=== PATIENT | female | born 1970 | race Caucasian/White ===

== ENCOUNTER 2019-12-19 19:56 | Emergency (ER) | payer OTHER ==
[~2019-12-19] VITALS: Ht 167.6 cm; Wt 53.1 kg
[2019-12-19 20:11] VITALS: Ht 167.6 cm; Wt 53.1 kg
[2019-12-19] MEDS ORDERED: LITHOBID 300 M300 MG PO (20:14)
[2019-12-19 20:24] LABS: BASOPHILS 0.2 % (0-2); EOSINOPHILS 0.2 % (0-7); HEMATOCRIT 43.4 % (36.0-48.0); HEMOGLOBIN 14.4 g/dL (12-16); IMMATURE GRANULOCYTES 0.3 % (0-5); LYMPHOCYTES 7.4 % (15-50); MCH 29.8 pg (26.0-34.0); MCHC 33.2 g/dL (31.0-37.0); MCV 89.7 fL (80.0-100.0); MONOCYTES 6.2 % (2-11); NEUTROPHILS 85.7 % (40-80); PLATELET COUNT 274 10x3/uL (130-400); RBC 4.84 10x6/uL (4.00-5.40); RDW 13.6 % (11.5-14.5)
[2019-12-19 20:35] LABS: ANION GAP 17.2 mmol/L (8-16); CALCIUM 8.7 mg/dL (8.5-10.1); CARBON DIOXIDE 23.6 mmol/L (21.0-32.0); CREATININE - SERUM 0.9 mg/dL (0.6-1.3); POTASSIUM - SERUM 3.8 mmol/L (3.5-5.1)
[2019-12-19 20:38] LABS: LITHIUM 0.25 mmol/L (0.60-1.20); SALICYLATES 4.3 mg/dL (2.8-20.0)
[2019-12-19 20:42] LABS: ALBUMIN 3.4 g/dL (3.4-5.0); BILIRUBIN - TOTAL 1.31 mg/dL (0.2-1.3); MAGNESIUM - SERUM 1.9 mg/dL (1.8-2.4); PROTEIN - SERUM 7.4 g/dL (6.4-8.2)
[2019-12-19] MEDS ORDERED: AUGMENTIN 875-11 TAB PO (20:52)
[2019-12-19 22:25] LABS: APPEARANCE HAZY (CLEAR); BACTERIA MANY /hpf (NEGATIVE); BILIRUBIN NEGATIVE (NEGATIVE); COLOR YELLOW (YELLOW); GLUCOSE NEGATIVE (NEGATIVE); KETONE MODERATE mg/dL (NEGATIVE); MUCUS <1+ /lpf (NONE SEEN); NITRITE NEGATIVE (NEGATIVE); PROTEIN NEGATIVE (NEGATIVE); RED CELLS - URINE OCC /hpf (0-5); SPECIFIC GRAVITY 1.025 (1.005-1.020); UROBILINOGEN NORMAL (NORMAL); WHITE CELLS - URINE 0-5 /hpf (NEGATIVE)
[2019-12-19 22:26] LABS: HCG URINE NEGATIVE (NEGATIVE); UDS - AMPHET NEGATIVE QUAL (NEGATIVE); UDS - BARB NEGATIVE QUAL (NEGATIVE); UDS - BENZO NEGATIVE QUAL (NEGATIVE); UDS - COCAINE NEGATIVE QUAL (NEGATIVE); UDS - OPIATE NEGATIVE QUAL (NEGATIVE); UDS - PCP NEGATIVE QUAL (NEGATIVE); UDS - THC POSITIVE QUAL (NEGATIVE)
--- NOTE | 2019-12-19 23:04 | NUR ---
PATIENT IS NOT SUICIDIAL, SHE IS SAD AND CLAIMS TO HAVE "THINGS" GOING ON. SHE SAYS THAT SHE IS "NEVER" GOING TO COMMIT SUICIDE, SHE HAS A CHILD AND FRIENDS THAT SHE LICES FOR. SUICIDE PREVENTION FORM GIVEN WITH A 1-800 NUMBER FOR ASSISTANCE IF NEEDED. SHE VERBALIZES UNDERSTANDING
[2019-12-20 04:08] VITALS: BP 123/79
[2019-12-23 16:08] LABS: AEROBE ID Preliminary report (())
== END 2019-12-20 04:09 ==
LOC: D.ER 19:56
PROVIDERS: Family Medicine
DX: F41.9 Anxiety disorder, unspecified (principal); L03.011 Cellulitis of right finger; F32.3 Major depressive disorder, single episode, severe with psychotic features; T14.91XA Suicide attempt, initial encounter; X78.8XXA Intentional self-harm by other sharp object, initial encounter; Y93.9 Activity, unspecified; Y92.9 Unspecified place or not applicable